=== PATIENT | male | born 1950 | race Hispanic/Latino ===

== ENCOUNTER → 2017-01-13 | Outpatient (REF) | payer MEDICARE, BC ==
[~2017-01-13] MED LIST: ACID1CAP PO; ATEN50TA2 PO; CELE-19 PO; FENO160T10 PO; FINA5TAB2 PO; FLOM5CAP PO; GABA-283 PO; LISI-538 PO; META1TAB19 PO; METF1000 PO; NEXI20CA PO; SITA50TAB PO; ZETI10TA2 PO; tylenol OR
[2017-01-13 13:48] LABS: MICROSCOPIC INDICATED? MAN YES (NO)
[2017-01-13 13:53] LABS: RBC, URINE TNTC /hpf (0-3); WBC, URINE TNTC /hpf (0-3)
[2017-01-13 13:54] LABS: BACTERIA, URINE SMALL AMOUNT; HYALINE CAST, URINE NONE SEEN /lpf (0-1); MICROSCOPIC EXAM PERFORMED; SQUAMOUS EPITHELIAL CELL URINE SMALL AMOUNT /hpf (SMALL AMT)
== END ==
LOC: M SMT 12:47
PROVIDERS: ATTEND Urology
DX: R30.0 Dysuria (principal)

== ENCOUNTER → 2017-01-27 | Outpatient (REF) | payer MEDICARE, BC | LOC: M SMT 12:55 | PROVIDERS: ATTEND Urology | DX: R31.0 Gross hematuria (principal); R30.0 Dysuria ==

== ENCOUNTER → 2017-03-12 | Outpatient (REF) | payer MEDICARE, BC | LOC: M SMT 17:06 | PROVIDERS: ATTEND Urology | DX: R30.0 Dysuria (principal) ==

== ENCOUNTER → 2017-03-19 | Outpatient (CLI) | payer MEDICARE, BC ==
[~2017-03-19] MED LIST changes: +ISOVUE-370 76% 100ML VIAL (Q9967) As Ordered ONE
--- NOTE | 2017-03-19 12:07 | REP ---
REASON: Gross hematuria. COMPARISON EXAMINATION: None. CONTRAST: 100 mL Isovue 370. The lung bases are clear. The precontrast enhanced portion of the examination shows hepatic and splenic densities to be within normal limits. There are multiple large nephroliths on the left seen in conjunction with caliectasis no apparent disease mild hydronephrosis, but no evidence of hydroureter. There are no urinary bladder calcifications, however, the urinary bladder wall appears asymmetrically thickened. The patient is status post cholecystectomy. The contrast enhanced portion of the examination shows a tiny focal area of decreased density in the anterior segment of the right lobe of the liver which measures 1 cm and has some peripheral contrast enhancement. This is barely precipitable on the delayed imaging suggesting central contrast enhancement. The lesion is too small for precise CT characterization. The spleen, pancreas, and adrenal glands were unremarkable. Arising from the left kidney superior pole there is a 3.4 cm size low density lesion which has near water Hounsfield Unit reading on the precontrast enhanced portion of today's exam and the Hounsfield unit readings do not change during arterial and venous phase imaging. There are no septations or enhancing mural nodules. Large calcifications were again seen in the left kidney. In the interpolar region of the left kidney there is a second 1 cm sized cyst. The abdominal aorta and periaortic regions are within normal limits. Small left sided para-aortic lymph nodes are noted. These retain their fatty elisabeth. There is rather extensive colonic diverticulosis. The bowel loops and their mesenteries are otherwise unremarkable. There is on evidence of free fluid or free air. CT PELVIS: There is irregularity of the floor of the urinary bladder posteriorly. The urinary bladder wall appears somewhat thickened. No free fluid or free air is seen in the pelvis. There is no evidence of pelvic sidewall adenopathy. Bone window technique throughout the exam shows an area of abnormal increased density involving the right ilium near the superior-posterior sacroiliac joint, but not crossing that joint. There are spinal degenerative changes. IMPRESSION: 1. Calcifications in the left kidney causing caliectasis and having the appearance of a possible developing staghorn calculus. 2. Two Bosniak class 1 left renal cysts. 3. Tiny focal lesions seen in the anterior segment of the right lobe of the liver as described above. This is an indeterminate lesion and consideration should be made for further evaluation with MRI before and after gadolinium administration. 4. Abnormal density in the right ilium as described having the appearance of a blastic lesion. Consider further evaluation with conventional bone scintigraphy or possibly MRI. 5. Irregularity involving the posterior floor of the urinary bladder. I cannot say with certainty whether this is arising from an asymmetrically abnormally enlarged prostate gland or in fact represents a true urinary bladder wall lesion. Cystoscopy should be considered. 6. Colonic diverticulosis. 7. Other findings as described above. Signed by Jalen Cantor DO 03/19/2017 02:16 P
== END ==
LOC: M RAD 08:17
PROVIDERS: ATTEND Urology
DX: R31.0 Gross hematuria (principal)
CPT/HCPCS: 74178; Q9967

== ENCOUNTER → 2017-03-31 | Outpatient (REF) | payer MEDICARE, BC ==
[~2017-03-31] MED LIST changes: -ISOVUE-370 76% 100ML VIAL (Q9967) As Ordered ONE
== END ==
LOC: M SMT 12:50
PROVIDERS: ATTEND Nurse Practitioner Family
DX: R30.0 Dysuria (principal); N20.0 Calculus of kidney
CPT/HCPCS: 87086; G0463

== ENCOUNTER → 2017-04-28 | Outpatient (CLI) | payer MEDICARE, BC ==
[~2017-04-28] MED LIST changes: -CELE-19 PO; +CELE1CAP4 PO; +COLA100C5 PO; +HYDR-3713 PO; +ISOVUE-300 61% 50ML VIAL (Q9967) As Ordered ONE; +LIDOCAINE 2% MDV 20 ML VIAL As Ordered ONE; +LR 1,000 ML IV SCH; -METF1000 PO; +METF10004 PO; +MIDAZOLAM INJ 2 MG/2 ML VIAL (J2250) As Ordered ONE; +NORCO, ANEXSIA 5/325MG TABLET (HYDROcodone/ACETAMINOPHEN) As Ordered ONE; +NORCO, ANEXSIA 5/325MG TABLET (HYDROcodone/ACETAMINOPHEN) PO PRN; +ONDANSETRON 4MG/2ML VIAL (J2405) IV PRN; +OXYC1TAB23 PO; +TYLE325T5 PO; -ZETI10TA2 PO; +ZETI10TA30 PO; +cefTRIAXone SOD 1 GM VIAL (J0696) As Ordered ONE; +fentaNYL 100 MCG/2 ML INJECTION (J3010) As Ordered ONE; +fentaNYL 100 MCG/2 ML INJECTION (J3010) IV PRN
[2017-04-28 11:35] VITALS: BP 173/86
--- NOTE | 2017-04-28 17:42 | REPKIM ---
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 The referring urology service has asked a nephroureteral catheter (stent) placement for preop percutaneous nephrolithotripsy urology procedure on the left. PROCEDURE PERFORMED: 1. Ultrasound left Kidney 2. Percutaneous antegrade Nephrostogram 3. Percutaneous Nephroureteral catheter (stent) placement INTERVENTIONALIST: Mary Jane Coronel MD CONSENT: The risks, benefits and alternatives to the procedure were explained to the patient and informed written consent was obtained. SEDATION: Sedation and analgesia was provided by the Anesthesiology Dept. MEDICATIONS: Rocephin 1gm IV, Local Lidocaine CONTRAST: 15 mL Isovue 300 EBL: 10 mL FLUORO TIME: 5.7 minutes DEVICE USED: 8.5F 45-cm pigtail; Nephroureteral catheter (stent) Lot#[id number] PROCEDURE/FINDINGS: The patient was brought to the interventional radiology suite and placed in the prone position, left flank prepped and draped in the usual sterile fashion. Time out procedure was performed. Ultrasound of the kidney showed staghorn calculi in the renal pelvis/lower pole calyces. Using ultrasound and fluoroscopy guidance, a 21-gauge Accustick needle was advanced into the targeted lower pole posterior calyx, after infiltration of the skin and deep tissues with local anesthetic. Contrast was injected and images were obtained. This showed free antegrade flow of contrast into the urinary bladder. Using a hydrophilic guidewire, the catheter-wire combination was advanced around the renal pelvis stone into the proximal ureter then into the urinary bladder. The wire was then exchanged for a stiff wire. An 8.5-Sami 45-cm length nephroureteral catheter (stent) was introduced over the guidewire after serial dilation of its tract. The guidewire was withdrawn and the distal end of the loop curled in the bladder. The nephroureteral catheter was then flushed and capped. The patient tolerated the procedure well with no immediate complications. The patient was transferred to the recovery room. This procedure was performed using ultrasound and fluoroscopy. Dr. Coronel was present. IMPRESSION: 1. Staghorn calculi in the renal pelvis and lower pole calyces. Nephrostogram demonstrates free antegrade flow of contrast into the urinary bladder. The pelvicalyceal system is minimally dilated. 2. Successful 8.5F nephroureteral catheter (stent) placement via the posterior lower pole calyx with its tip positioned in the urinary bladder as discussed above. This NU access will be used for subsequent percutaneous nephrolithotripsy urology procedure. cc: MD Rach Wiseman NP MTDD
== END | disposition home or self-care (01) ==
LOC: M IRPRO 07:30
PROVIDERS: ATTEND Nurse Practitioner Family
DX: N20.0 Calculus of kidney (principal)
CPT/HCPCS: 50395; 74485; C1729; C1769; C1894; J0696; J2250; J3010; Q9967

== ENCOUNTER 2017-04-30 05:43 | Inpatient (IN) | payer MEDICARE, BC ==
[2017-04-30] VITALS (7 sets, daily range): BP systolic 129–151; BP diastolic 70–88
[~2017-04-30] VITALS: Ht 165.1 cm; Wt 74.2 kg
[~2017-04-30 05:43] MED LIST changes: -COLA100C5 PO; -ISOVUE-300 61% 50ML VIAL (Q9967) As Ordered ONE; -LIDOCAINE 2% MDV 20 ML VIAL As Ordered ONE; -LR 1,000 ML IV SCH; -MIDAZOLAM INJ 2 MG/2 ML VIAL (J2250) As Ordered ONE; -NORCO, ANEXSIA 5/325MG TABLET (HYDROcodone/ACETAMINOPHEN) As Ordered ONE; -NORCO, ANEXSIA 5/325MG TABLET (HYDROcodone/ACETAMINOPHEN) PO PRN; -ONDANSETRON 4MG/2ML VIAL (J2405) IV PRN; -OXYC1TAB23 PO; -TYLE325T5 PO; -cefTRIAXone SOD 1 GM VIAL (J0696) As Ordered ONE; -fentaNYL 100 MCG/2 ML INJECTION (J3010) As Ordered ONE; -fentaNYL 100 MCG/2 ML INJECTION (J3010) IV PRN
[2017-04-30] MEDS: LR 1,000 ML IV SCH ×2 (06:39→16:00)
[2017-04-30] MEDS ORDERED: ROCURONIUM BROMIDE 50 MG/5 ML VIAL/SYRINGE As Ordered ONE (07:15)
[2017-04-30] MEDS ORDERED: PROPOFOL 200 MG/20 ML VIAL As Ordered ONE (07:15)
[2017-04-30] MEDS ORDERED: LIDOCAINE 2% INJ 100 MG/5 ML SDV (FOR ANES.) As Ordered ONE (07:15)
[2017-04-30] MEDS ORDERED: fentaNYL 250 MCG/5 ML INJECTION (J3010) As Ordered ONE (07:16)
[2017-04-30] MEDS ORDERED: MIDAZOLAM INJ 2 MG/2 ML VIAL (J2250) As Ordered ONE (07:16)
[2017-04-30] MEDS ORDERED: CONRAY-60 60% 50ML VIAL (Q9961) As Ordered ONE ×2 (07:18→08:30)
[2017-04-30] MEDS: NS 1,000 ML IV SCH ×3 (07:24→23:24)
[2017-04-30] MEDS ORDERED: PERCOCET 5MG/325MG TAB PO PRN (07:30)
[2017-04-30] MEDS ORDERED: GLUCOSE 4 GM CHEW TABLET PO PRN (07:30)
[2017-04-30] MEDS ORDERED: ONDANSETRON 4MG/2ML VIAL (J2405) IV PRN ×2 (07:30→10:00)
[2017-04-30] MEDS ORDERED: ACETAMINOPHEN TAB 650MG DOSE (2X325MG) PO PRN (07:30)
[2017-04-30] MEDS ORDERED: MORPHINE 2 MG/ML 1ML SYRINGE IV PRN (07:30)
[2017-04-30] MEDS: HumaLOG INSULIN (NovoLOG) PER UNIT SC SCH ×3 (07:30→17:55)
[2017-04-30] MEDS ORDERED: GLUCAGON FOR INJ 1 MG VIAL (J1610) SC PRN (07:30)
[2017-04-30] MEDS ORDERED: DEXTROSE 50% 50 ML SYRINGE IV PRN (07:30)
[2017-04-30] MEDS ORDERED: GLYCOPYRROLATE INJ 0.2 MG/ML 2 ML VIAL As Ordered ONE (08:39)
[2017-04-30] MEDS ORDERED: ONDANSETRON 4MG/2ML VIAL (J2405) As Ordered ONE (08:39)
[2017-04-30] MEDS ORDERED: NEOSTIGMINE 1MG/ML 5 ML SYRINGE (J2710) As Ordered ONE (08:39)
[2017-04-30] MEDS ORDERED: HYDROmorphone HCL 2 MG/ML 1ML VIAL (J1170) As Ordered ONE (08:52)
[2017-04-30] MEDS: GABAPENTIN 400 MG CAP PO SCH ×3 (09:00→19:52)
[2017-04-30] MEDS ORDERED: ePHEDrine SULFATE 25 MG/5 ML(5MG/ML) SYRINGE As Ordered ONE ×2 (09:03→09:04)
[2017-04-30 09:52] LABS: MEAN CORPUSCULAR HEMOGLOBIN 28.9 pg (27.0-33.0); MEAN CORPUSCULAR HGB CONC 32.2 g/dl (32.0-36.5); MEAN CORPUSCULAR VOLUME 89.8 fl (80.0-96.0); RED CELL DISTRIBUTION WIDTH 14.8 % (11.5-14.5); WHITE BLOOD COUNT 8.4 K/mm3 (4.0-10.0)
[2017-04-30] MEDS ORDERED: fentaNYL 100 MCG/2 ML INJECTION (J3010) IV PRN (10:00)
[2017-04-30] MEDS ORDERED: LR 1,000 ML IV SCH (10:00)
[2017-04-30 10:19] LABS: CALCIUM LEVEL 8.7 MG/DL (8.8-10.2); CREATININE FOR GFR 1.6 MG/DL (0.70-1.30); GLOMERULAR FILTRATION RATE 46.1 (>49); POTASSIUM SERUM 3.6 MEQ/L (3.5-5.1)
--- NOTE | 2017-04-30 10:22 | REP ---
REASON: Nephrolithiasis. Fluoroscopy time: 1 minute and [address] Salmon. Five images were obtained. Image 1 and 2 show images from retrograde pyelography with image 3 and 4 showing guidewire placement for double J stent catheter placement seen on image 5 the proximal portion of which is in the region of the renal pelvis with image 4 showing the distal portion within the urinary bladder. Signed by Jalen Cantor DO 04/30/2017 11:05 A
[2017-04-30] MEDS: DOCUSATE SODIUM 100 MG CAP PO SCH ×2 (12:52→19:51)
[2017-04-30] MEDS: OMEPRAZOLE 20 MG CAP PO SCH (12:52)
[2017-04-30] MEDS: LISINOPRIL 20 MG TAB PO SCH ×2 (12:52→19:51)
[2017-04-30] MEDS: PERCOCET 5MG/325MG TAB PO PRN ×2 (13:28→19:53)
[2017-04-30] MEDS: ceFAZolin SOD 1 GM in D5W MINI-BAG PLUS 50 ML IV SCH ×2 (17:48→23:30)
[2017-04-30] MEDS ORDERED: TAMSULOSIN 0.4 MG CAP PO SCH (21:00)
[2017-05-01 02:00] VITALS: BP 132/67
[2017-05-01 06:00] VITALS: BP 129/67
[2017-05-01] MEDS: PERCOCET 5MG/325MG TAB PO PRN (06:29)
[2017-05-01 06:35] LABS: MEAN CORPUSCULAR HEMOGLOBIN 29.1 pg (27.0-33.0); MEAN CORPUSCULAR HGB CONC 32.7 g/dl (32.0-36.5); MEAN CORPUSCULAR VOLUME 88.9 fl (80.0-96.0); RED CELL DISTRIBUTION WIDTH 14.8 % (11.5-14.5); WHITE BLOOD COUNT 7.6 K/mm3 (4.0-10.0)
[2017-05-01 06:51] LABS: CALCIUM LEVEL 8.5 MG/DL (8.8-10.2); CREATININE FOR GFR 1.31 MG/DL (0.70-1.30); GLOMERULAR FILTRATION RATE 58.1 (>49); POTASSIUM SERUM 3.6 MEQ/L (3.5-5.1)
[2017-05-01] MEDS: HumaLOG INSULIN (NovoLOG) PER UNIT SC SCH ×2 (07:30→12:36)
[2017-05-01 08:19] VITALS: BP 129/67
[2017-05-01] MEDS: GABAPENTIN 400 MG CAP PO SCH (08:19)
[2017-05-01] MEDS: LISINOPRIL 20 MG TAB PO SCH (08:19)
[2017-05-01] MEDS: DOCUSATE SODIUM 100 MG CAP PO SCH (08:19)
[2017-05-01] MEDS: OMEPRAZOLE 20 MG CAP PO SCH (08:19)
--- NOTE | 2017-05-01 08:44 | RO ---
DATE OF PROCEDURE: 04/30/2017 PREPROCEDURE DIAGNOSIS: Left kidney stones. POSTPROCEDURE DIAGNOSIS: Left kidney stones. PROCEDURE: Left percutaneous nephrolithotomy, left antegrade nephrostogram and intraoperative interpretation of images, cystoscopy with catheter placement over a wire. SURGEON: Dr. Paxton Salmon CELL INSTALLER: None. ANESTHESIA: General. OPERATIVE INDICATIONS: This is a 66-year-old male who was found to have a large kidney stone in the left renal pelvis as well as several additional stones inside the lower pole calyx. For that reason, he was brought to the operating room today for the above listed procedure. DESCRIPTION OF PROCEDURE: The patient was brought to the operating room where general anesthesia was induced. Prophylactic antibiotics were infused. We then attempted to place a #20-Malawian catheter under sterile conditions but the catheter would not go and we kept meeting resistance at the level of the prostate. At this point, I attempted to place an #18-Malawian Coude catheter and that would also not go. Because of this, the decision was made to perform flexible cystoscopy at the bedside. This was done under sterile conditions. At this point, there was a false passage at the area of the prostatic urethra. I was able to navigate past this and at this point, I advanced a wire into the bladder. The scope was then removed and the wire was utilized to advance an #18-Malawian ute tip catheter into the bladder. The balloon was filled with 10 mL of sterile water and the wire was removed and the catheter was connected to gravity drainage. Urine drained pink after that was done. At this point, the patient was then repositioned in prone position with all pressure points appropriately padded. He was then prepped and draped in the usual sterile fashion. At this point, a previously placed left nephroureteral stent was utilized to advance a superstiff wire down into the left collecting system. The nephroureteral stent was then removed leaving the superstiff wire in place. At this point, a 3-4 cm transverse incision was made adjacent to the wire. I advanced a dual lumen ureteral catheter down over the wire into the left collecting system. Of note, the stones could easily be seen on fluoroscopy. At this point, an antegrade nephrostogram was performed which was notable for the filling defects where the stones were and there was no extravasation. I then utilized the other port to advance a Sensor wire down the left collecting system. The dual lumen ureteral catheter was then removed leaving both wires in place. At this point, the Sensor wire was secured to the drape to serve as a safety wire. I then advanced a balloon dilator over the superstiff wire down into the left collecting system. The balloon was then inflated to dilate the nephrostomy tract and then I advanced an access sheath over the balloon into the left collecting system. The balloon was the let down and removed leaving the wire in place. I then went in the access sheath with a nephroscope and within the renal pelvis, the largest stone was seen. The stone was then fragmented into smaller pieces and suctioned out using a Cyberwand. I then searched the remainder of the kidney and in the lower pole calyx, I saw the remaining stones and these stones were also fragmented into smaller pieces and all suctioned out. At this point, no additional stones were seen within the kidney with direct visualization. On fluoroscopy, I could not see any additional stones either. The nephroscope was then removed and I utilized the superstiff wire to advance a #7-Malawian x 22-32 cm JJ ureteral stent down into the left collecting system. The wire was then removed and there were adequate curls of the stent in the left renal pelvis and in the bladder. At this point, the access sheath was then removed and I utilized the Sensor wire to advance an #18-Malawian ute tip catheter into the left renal pelvis. The balloon was then filled with about 4 mL of contrast confirming its location in the renal pelvis. This catheter was then secured to the skin with a #3-0 silk suture and the catheter was then connected to gravity drainage. Dressings were applied and this marked the conclusion of the procedure. The patient was then placed back in the supine position, awakened from anesthesia and transported to the recovery room in stable condition. ESTIMATED BLOOD LOSS: 50 mL. COMPLICATIONS: None. SPECIMENS: Kidney stone fragments. PLAN: Patient will be admitted to the hospital overnight and monitored. If his labs are fine in the morning and he feels well, we will remove his nephrostomy catheter in the morning. We will likely send him home with a catheter in place given the difficulty getting the catheter in in the operating room and plan to take that out in about a week. His stent will be taken out in about 2-3 weeks. ZOILA
[2017-05-01] MEDS ORDERED: ATENOLOL 50 MG TAB PO SCH (09:00)
--- NOTE | 2017-05-01 09:23 | IPNPDOC ---
Assessment/Plan Date Seen The patient was seen on 05/01/17. Patient Summary This is a 66 y/o M POD1 s/p left PCNL and cysto w/ catheter placement over a wire. He is doing well. His nephrostomy catheter was removed this morning. Labs are stable. UOP has been very good. Plan/VTE VTE Prophylaxis Ordered?: Yes VTE Exclusion Mechanical Proph: N/A:VTE Prophy Ordered Plan/Urinary Catheter Urinary Catheter: Other Catheter: (keep catheter in place due to urethral trauma w/ initial attempts at catheter placement in the OR) Plan - percocet prn pain - SCDs - diabetic diet - ambulate - likely d/c home later this morning w/ catheter Subjective Review oF Systems Chief Complaint The patient is a 66-year-old male admitted with a reason for visit of Nephrolithiasis. Events since Last Encounter No acute events o/n. The patient notes minimal pain. He denies nausea. No f/c /ns. Objective Physical Examination General Exam: Alert, No Acute Distress Skin Exam: Nl turgor and temperature Psych Exam: Mental status NL, Mood NL Other physical findings jay catheter draining clear urine; left nephrostomy catheter draining pink urine w/ no clots Vital Signs/I&O Vital Signs Date Time Temp Pulse Resp B/P (MAP) Pulse Ox O2 Delivery O2 Flow Rate FiO2 05/01/17 08:19 129/67 05/01/17 08:18 82 05/01/17 07:00 18 05/01/17 06:29 Room Air 05/01/17 06:00 100.0 92 04/30/17 09:29 3 I&O- Last 24 Hours up to 6 AM 05/01/17 06:00 Intake Total 4020 ml Output Total 2125 ml Balance 1895 ml Laboratory Data Labs 24H Laboratory Tests 2 04/30/17 09:38: Anion Gap 6L, Glomerular Filtration Rate 46.1L, Blood Urea Nitrogen 23H, Creatinine 1.60H, Sodium Level 141, Potassium Level 3.6, Chloride Level 108H, Carbon Dioxide Level 27, Calcium Level 8.7L 04/30/17 17:42: Bedside Glucose (Misc Panel) 230H 04/30/17 20:46: Bedside Glucose (Misc Panel) 115 05/01/17 06:19: Anion Gap 6L, Glomerular Filtration Rate 58.1, Blood Urea Nitrogen 12, Creatinine 1.31H, Sodium Level 139, Potassium Level 3.6, Chloride Level 105, Carbon Dioxide Level 28, Calcium Level 8.5L CBC/BMP Laboratory Tests 04/30/17 09:38 Red Blood Count 3.28 L, Mean Corpuscular Volume 89.8, Mean Corpuscular Hemoglobin 28.9, Mean Corpuscular Hemoglobin Concent 32.2, Red Cell Distribution Width 14.8 H, Calcium Level 8.7 L 05/01/17 06:19 Red Blood Count 3.25 L, Mean Corpuscular Volume 88.9, Mean Corpuscular Hemoglobin 29.1, Mean Corpuscular Hemoglobin Concent 32.7, Red Cell Distribution Width 14.8 H, Calcium Level 8.5 L FSBS Laboratory Tests Test 04/30/17 17:42 04/30/17 20:46 Range/Units Bedside Glucose (Misc Panel) 230 115 80-115 MG/DL EDWIN WHITLEY MD May 01, 2017 09:23
[2017-05-01] MEDS ORDERED: TYLE325T5 PO (10:43)
[2017-05-01] MEDS ORDERED: OXYC1TAB23 PO (10:43)
[2017-05-01] MEDS ORDERED: COLA100C5 PO (10:43)
--- NOTE | 2017-05-02 08:01 | DSES ---
DATE OF ADMISSION: 04/30/2017 DATE OF DISCHARGE: 05/01/2017 ADMISSION DIAGNOSIS: Nephrolithiasis. DISCHARGE DIAGNOSIS: Nephrolithiasis. ADMITTING PHYSICIAN: Dr. Paxton Salmon. DISCHARGE PHYSICIAN: Dr. Paxton Salmon. PROCEDURES PERFORMED: Left percutaneous nephrolithotomy and cystoscopy with catheter placement over a wire. HISTORY OF PRESENT ILLNESS: This is [id number] male who was found to have a large left renal pelvic stone as well as additional stones in the lower pole calices. It was recommended that he undergo the above listed procedure and he was admitted to the hospital after undergoing the procedure. HOSPITALIZATION COURSE: The patient was admitted to the hospital after undergoing the above listed procedure. His postoperative course was unremarkable. On postoperative day 1, his labs were stable, within normal limits. He had very minimal pain. His left nephrostomy catheter was removed in the morning postoperative day 1. His catheter was kept in place and it drained clear urine. The patient was tolerating a regular diet. As the patient was doing well, he was deemed ready for discharge on postoperative day 1. He was discharged home with a catheter in place with the plan for him to followup in the clinic next week for catheter removal. He will then followup in the clinic in approximately 2-3 weeks for stent removal. ZOILA
== END 2017-05-01 15:37 | disposition home or self-care (01) | DRG 661 ==
LOC: M SDC 05:43 → M MS5PR 10:45 → M SDC 15:27 → M MS5PR 15:28
PROVIDERS: ADMIT Urology; ATTEND Urology
PROC: 0T773DZ Dilation of Left Ureter with Intraluminal Device, Percutaneous Approach (ICD-10-PCS; 2017-04-28)
PROC: 0TC14ZZ Extirpation of Matter from Left Kidney, Percutaneous Endoscopic Approach (ICD-10-PCS; 2017-04-30)
PROC: 0TP98DZ Removal of Intraluminal Device from Ureter, Via Natural or Artificial Opening Endoscopic (ICD-10-PCS; 2017-04-30)
PROC: 0T744DZ Dilation of Left Kidney Pelvis with Intraluminal Device, Percutaneous Endoscopic Approach (ICD-10-PCS; 2017-04-30)
PROC: 0TC44ZZ Extirpation of Matter from Left Kidney Pelvis, Percutaneous Endoscopic Approach (ICD-10-PCS; principal; 2017-04-30 07:30)
DX: N20.0 Calculus of kidney (principal)

== ENCOUNTER → 2017-10-06 | Outpatient (REF) | payer MEDICARE, BC ==
[~2017-10-06] MED LIST changes: +COLA100C5 PO; +OXYC1TAB23 PO; +TYLE325T5 PO
== END ==
LOC: M SMT 17:06
PROVIDERS: ATTEND Urology
DX: R10.9 Unspecified abdominal pain (principal); R31.9 Hematuria, unspecified

== ENCOUNTER → 2017-10-13 | Outpatient (CLI) | payer MEDICARE, BC ==
--- NOTE | 2017-10-13 11:10 | REP ---
CT ABDOMEN/PELVIS WITHOUT CONTRAST: 02/2017 CLINICAL HISTORY: Left flank pain. Known renal stone disease. TECHNIQUE. Noncontrast CT abdomen/pelvis with coronal and sagittal reconstructions. FINDINGS: CT ABDOMEN: The lung bases remain without acute finding. Heart is unchanged. There is no pericardial thickening or effusion. No hiatal hernia. Stomach filled with retained food and fluid. There is no hepatomegaly, splenomegaly, or focal splenic lesion. No hepatic lesion, intrahepatic biliary dilatation, nor adjacent ascites. Clips in the gallbladder fossa from prior cholecystectomy. Pancreas grossly unremarkable. Adrenal glands are normal. Right kidney shows lobation, but no stone, hydronephrosis, cyst, or solid mass. No perinephric edema. Left kidney shows a hyperdense cyst as on the previous study. This is laterally off the lower pole and measuring up to 2.6 cm. There is an exophytic cyst at the upper pole of that same left kidney 3.5 cm, unchanged, and also this cyst is not hyperdense. There is a moderate hydronephrosis. There are a couple of punctate stones in the lower pole of the left kidney, measures about 4 mm. On the previous study, there was a much larger stone in the renal pelvis lower pole up to 15 mm. I do not see fragments of that stone in the ureter. There is no stone in the bladder. The aorta has calcifications without aneurysm. No periaortic or retroperitoneal pathologic-sized lymphadenopathy. Visualized pancreas intact. Small bowel loops intact. There is extensive diverticulosis in the left colon and scattered and only slightly less severe in the transverse and right colon. No colitis or diverticulitis in the abdomen proper. Lung window review of all CT slices shows no perforation or free air. Bone windows are unchanged with extensive degenerative disc changes at 3-4 with sclerosis of the endplates, subchondral cysts, all stable findings. CT PELVIS: The bony hips, pelvis, sacrum, SI joints, and lumbosacral junction are unchanged. There is sclerosis in the posterior aspect of the right iliac wing without destructive lesion of bone. There is facet arthropathy lower lumbar spine. There is a bone island in the inferior pubic ramus on the left. Bladder only minimally filled. It shows prostate impression and indentation on its base from an enlarged prostate. No ureteral dilatation or stone in the pelvis, portion of the ureter. Extensive diverticulosis distal left colon and sigmoid without diverticulitis. IMPRESSION: 1. There is hydronephrosis and proximal hydroureter on the left without visible stone within that ureter. Previous 15 mm stone in the lower pole and renal pelvis on the left on 03/19/2017 is only evident now as two small punctate calcifications 4 mm and smaller in the lower pole, not in the ureter. 2. Right kidney grossly unremarkable. There are no other acute or significant findings. There are atherosclerotic calcifications, degenerative changes in the spine, and the left kidney had two exophytic cysts, one hyperdense and one not. Signed by Marcelo Hicks MD 10/14/2017 07:10 P
== END ==
LOC: M RAD 09:23
PROVIDERS: ATTEND Urology
DX: N13.30 Unspecified hydronephrosis (principal)

== ENCOUNTER → 2017-10-22 | Outpatient (CLI) | payer MEDICARE, BC | LOC: M SMT 14:56 | PROVIDERS: ATTEND Urology | DX: Z12.5 Encounter for screening for malignant neoplasm of prostate (principal) | CPT/HCPCS: 36415; G0103 ==

== ENCOUNTER → 2018-04-30 | Outpatient (REF) | payer MEDICARE, BC ==
[2018-04-30 17:35] LABS: APPEARANCE, URINE CLOUDY (CLEAR); BACTERIA, URINE AUTO NEGATIVE (NEGATIVE); BILIRUBIN, URINE AUTO NEGATIVE (NEGATIVE); BLOOD, URINE BLOOD 3+ (NEGATIVE); COLOR, URINE YELLOW (YELLOW); GLUCOSE, URINE (UA) AUTO NEGATIVE (NEGATIVE); KETONE, URINE AUTO NEGATIVE (NEGATIVE); LEUKOCYTE ESTERASE, URINE AUTO 3+ (NEGATIVE); NITRITE, URINE AUTO NEGATIVE (NEGATIVE); PROTEIN, URINE AUTO NEGATIVE (NEGATIVE); RBC, URINE AUTO 94 /HPF (0-3); SPECIFIC GRAVITY URINE AUTO 1.015 (1.002-1.035); SQUAMOUS EPITHELIAL CELL UR AU 0 /HPF (0-6); UROBILINOGEN, URINE AUTO 0.2 mg/dL (0.0-2.0); WBC, URINE AUTO TNTC /HPF (0-3)
== END ==
LOC: M SMT 17:12
DX: R30.0 Dysuria (principal)
CPT/HCPCS: 81001

== ENCOUNTER → 2020-04-10 | Outpatient (CLI) | payer MEDICARE, BC ==
[~2020-04-10] MED LIST changes: +ACIDTAB3 PO; +FLOM0.4C39 PO; -FLOM5CAP PO; -GABA-283 PO; +GABA-845 PO; -META1TAB19 PO; +META400T PO; +NORV5TAB PO; +QC A650T3 PO; +VITA50005 PO; +ZETI10TA16 PO; -ZETI10TA30 PO
== END ==
LOC: M LABSMTC 12:11
PROVIDERS: ATTEND Anesthesiology
DX: Z01.818 Encounter for other preprocedural examination (principal); Z11.59 Encounter for screening for other viral diseases
CPT/HCPCS: C9803; U0003

== ENCOUNTER 2020-04-13 13:38 | Day surgery (SDC) | payer MEDICARE, BC ==
[~2020-04-13] VITALS: Ht 165.1 cm; Wt 65.3 kg
[~2020-04-13 13:38] MED LIST changes: +LIDOCAINE 2% 100MG/5ML SDV (FOR ANES.) As Ordered ONE; +NS 1,000 ML IV ONE; +propofoL 200 MG/20 ML VIAL As Ordered ONE
[2020-04-13] MEDS ORDERED: fentaNYL 100 MCG/2 ML INJECTION (J3010) As Ordered ONE (13:59)
[2020-04-13] MEDS ORDERED: propofoL 200 MG/20 ML VIAL As Ordered ONE (13:59)
--- NOTE | 2020-04-13 14:55 | ROOR ---
Patient Name: Jose Mistry Procedure Date: 04/13/2020 2:12 PM Date of : 1950 Age: 69 Room: [facility] Gender: Male Note Status: Finalized Procedure: Upper GI endoscopy Indications: Follow-up of Soliz's esophagus Providers: Americo Powell MD Referring MD: TARA JIMÉNEZ NP Requesting Provider: Medicines: Monitored Anesthesia Care Complications: No immediate complications. Procedure: Pre-Anesthesia Assessment: - Prior to the procedure, a History and Physical was performed, and patient medications and allergies were reviewed. The patient is competent. The risks and benefits of the procedure and the sedation options and risks were discussed with the patient. All questions were answered and informed consent was obtained. Patient identification and proposed procedure were verified by the physician, the nurse and the continuous weld pipe mill supervisor in the procedure room. Mental Status Examination: alert and oriented. Airway Examination: normal oropharyngeal airway and neck mobility. Prophylactic Antibiotics: The patient does not require prophylactic antibiotics. Prior Anticoagulants: The patient has taken no previous anticoagulant or antiplatelet agents. ASA Grade Assessment: III - A patient with severe systemic disease. After reviewing the risks and benefits, the patient was deemed in satisfactory condition to undergo the procedure. The anesthesia plan was to use monitored anesthesia care (MAC). Immediately prior to administration of medications, the patient was re-assessed for adequacy to receive sedatives. The heart rate, respiratory rate, oxygen saturations, blood pressure, adequacy of pulmonary ventilation, and response to care were monitored throughout the procedure. The physical status of the patient was re-assessed after the procedure. The Endoscope was introduced through the mouth, and advanced to the second part of duodenum. The upper GI endoscopy was accomplished without difficulty. The patient tolerated the procedure well. Findings: The Z-line was irregular. Biopsies were taken with a cold forceps for histology. A few localized, small non-bleeding erosions were found in the prepyloric region of the stomach. There were no stigmata of recent bleeding. A few localized erosions without bleeding were found in the first portion of the duodenum. Impression: - Z-line irregular. Biopsied. - Non-bleeding erosive gastropathy. - Duodenal erosions without bleeding. Recommendation: - Discharge patient to home. - Resume previous diet. - Continue present medications. - Await pathology results. Americo Powell MD Americo Powell MD 04/13/2020 2:55:05 PM Electronically signed by Americo Powell MD Number of Addenda: 0 Note Initiated On: 04/13/2020 2:12 PM Estimated Blood Loss: Estimated blood loss was minimal.
--- NOTE | 2020-04-13 15:06 | ROOR ---
Patient Name: Jose Mistyr Procedure Date: 04/13/2020 2:13 PM Date of : 1950 Age: 69 Room: [facility] Gender: Male Note Status: Finalized Procedure: Colonoscopy Indications: High risk colon cancer surveillance: Personal history of colonic polyps, Last colonoscopy: February 2015 Providers: Americo Powell MD Referring MD: TARA JIMÉNEZ NP Requesting Provider: Medicines: Monitored Anesthesia Care Complications: No immediate complications. Procedure: Pre-Anesthesia Assessment: - Prior to the procedure, a History and Physical was performed, and patient medications and allergies were reviewed. The patient is competent. The risks and benefits of the procedure and the sedation options and risks were discussed with the patient. All questions were answered and informed consent was obtained. Patient identification and proposed procedure were verified by the physician, the nurse and the call center specialist in the procedure room. Mental Status Examination: alert and oriented. Airway Examination: normal oropharyngeal airway and neck mobility. ASA Grade Assessment: III - A patient with severe systemic disease. After reviewing the risks and benefits, the patient was deemed in satisfactory condition to undergo the procedure. The anesthesia plan was to use moderate sedation / analgesia (conscious sedation). Immediately prior to administration of medications, the patient was re-assessed for adequacy to receive sedatives. The heart rate, respiratory rate, oxygen saturations, blood pressure, adequacy of pulmonary ventilation, and response to care were monitored throughout the procedure. The physical status of the patient was re-assessed after the procedure. The Colonoscope was introduced through the anus and advanced to the cecum, identified by appendiceal orifice and ileocecal valve. The colonoscopy was performed without difficulty. The patient tolerated the procedure well. The quality of the bowel preparation was excellent. Findings: The perianal and digital rectal examinations were normal. Many large-mouthed diverticula were found in the entire colon. The exam was otherwise without abnormality. Impression: - Diverticulosis in the entire examined colon. - The examination was otherwise normal. - No specimens collected. Recommendation: - Discharge patient to home. - Resume previous diet. - Continue present medications. - Repeat colonoscopy in 5 years for surveillance. Americo Powell MD Americo Powell MD 04/13/2020 3:06:02 PM Electronically signed by Americo Powell MD Number of Addenda: 0 Note Initiated On: 04/13/2020 2:13 PM Estimated Blood Loss: Estimated blood loss: none.
[2020-04-13 15:10] VITALS: BP 104/75
== END 2020-04-13 15:57 | disposition home or self-care (01) ==
LOC: M OPP 13:38
PROVIDERS: ATTEND Surgery
DX: Z12.11 Encounter for screening for malignant neoplasm of colon (principal); Z86.010 Personal history of colon polyps; Z80.0 Family history of malignant neoplasm of digestive organs; K57.30 Diverticulosis of large intestine without perforation or abscess without bleeding; K22.8 Other specified diseases of esophagus; K31.89 Other diseases of stomach and duodenum; K26.9 Duodenal ulcer, unspecified as acute or chronic, without hemorrhage or perforation; K22.70 Barrett's esophagus without dysplasia; Z79.84 Long term (current) use of oral hypoglycemic drugs; Z79.899 Other long term (current) drug therapy; Z88.8 Allergy status to other drugs, medicaments and biological substances
CPT/HCPCS: 43239; 88305; G0105; J3010

== ENCOUNTER → 2021-08-13 | Outpatient (REF) | payer MEDICARE, BC ==
[~2021-08-13] MED LIST changes: +ERGO500029 PO; +GABA-283 PO; -GABA-845 PO; -LIDOCAINE 2% 100MG/5ML SDV (FOR ANES.) As Ordered ONE; -LISI-538 PO; +LISI20TA33 PO; -NS 1,000 ML IV ONE; -VITA50005 PO; -propofoL 200 MG/20 ML VIAL As Ordered ONE
== END ==
LOC: M LAB REF 17:20
PROVIDERS: ATTEND Internal Medicine Nephrology
DX: I12.9 Hypertensive chronic kidney disease with stage 1 through stage 4 chronic kidney disease, or unspecified chronic kidney disease (principal); N18.31 Chronic kidney disease, stage 3a; E11.22 Type 2 diabetes mellitus with diabetic chronic kidney disease

== ENCOUNTER → 2021-09-07 | Outpatient (CLI) | payer MEDICARE, BC ==
--- NOTE | 2021-09-07 13:27 | REPVR ---
PROCEDURE INFORMATION: Exam: CT Abdomen And Pelvis Without Contrast Exam date and time: 09/07/2021 12:34 PM Age: 71 years old Clinical indication: Other: Hydronephrosis TECHNIQUE: Imaging protocol: Computed tomography of the abdomen and pelvis without contrast. Radiation optimization: All CT scans at this facility use at least one of these dose optimization techniques: automated exposure control; mA and/or kV adjustment per patient size (includes targeted exams where dose is matched to clinical indication); or iterative reconstruction. COMPARISON: CT ABD PELVIS W/O CONTRAST 10/13/2017 9:55 AM FINDINGS: Detailed evaluation of the abdominal and pelvic viscera is somewhat limited in the absence of intravenous contrast. Pleural spaces: Hyperinflation, without acute airspace or pleural disease. Liver: Fatty infiltration of the liver. Gallbladder and bile ducts: Status post cholecystectomy. Pancreas: No pancreatic mass or ductal dilatation. Spleen: No splenomegaly. Adrenal glands: Unremarkable adrenals. Kidneys and ureters: Marked chronic left hydronephrosis, which has not significantly changed when compared to the previous study. Infiltration of left perinephric fat. Additional renal cysts, which are poorly differentiated from the dilated left upper collecting system. 3.1 cm exophytic hyperdense nodular lesion arising from the inferolateral left kidney, which previously measured 2.5 cm. Punctate calcifications in the lower pole the left kidney. 10 mm right renal cyst. Stomach and bowel: Duodenal diverticulum. Dilated fluid-filled stomach and mild small bowel dilatation, without a transition zone. Diverticulosis, without pericolonic inflammation. Wall thickening in the nondistended rectosigmoid. Appendix: Appendicolith, without acute appendicitis. Intraperitoneal space: No significant free fluid. Vasculature: Prominent vascular calcification. No abdominal aortic aneurysm. Lymph nodes: Subcentimeter lymph nodes. Urinary bladder: Minimal bladder wall thickening. Reproductive: Enlarged prostate producing extrinsic compression of the bladder base with loss of normal fascial planes. Bones/joints: Dextroscoliosis. Schmorl's nodes. Degenerative change and disc bulging. L5 spondylolysis. Soft tissues: Fat containing umbilical and inguinal hernias. IMPRESSION: 1.Marked chronic left hydronephrosis, which has not significantly changed when compared to the previous study. 2. Enlarged prostate producing extrinsic compression of the bladder base with loss of normal fascial planes. 3. Additional findings as described above. COMMENTS: Consistent with the [employer]'s Incidental Findings Committee white paper (J Am Jelani Radiol 2018): Any incidental renal lesion less than 1 cm or classified as too small to characterize, or any incidental cystic renal lesion characterized as simple-appearing, is likely benign. No follow-up imaging is recommended for these lesions per consensus recommendations based on imaging criteria. Electronically signed by: Prabhjot Longoria On 09/07/2021 13:27:15 PM
== END ==
LOC: M RAD 12:27
PROVIDERS: ATTEND Urology
DX: N13.30 Unspecified hydronephrosis (principal)

== ENCOUNTER → 2021-12-25 | Outpatient (REF) | payer MEDICARE, BC | LOC: M LAB REF 17:00 | PROVIDERS: ATTEND Internal Medicine Nephrology | DX: E83.42 Hypomagnesemia (principal) ==